=== PATIENT | male | born 1945 | race Caucasian/White ===

== ENCOUNTER → 2024-04-28 12:48 | Outpatient (REF) | payer MEDICARE, BC, SELFPAY | LOC: RCS 12:48 | PROVIDERS: ATTENDING PHYSICIAN Internal Medicine Cardiovascular Disease; FAMILY PHYSICIAN Internal Medicine | DX: I48.0 Paroxysmal atrial fibrillation (principal); Z95.5 Presence of coronary angioplasty implant and graft; R00.2 Palpitations | CPT/HCPCS: 93306 ==

== ENCOUNTER → 2024-05-03 12:14 | Outpatient (REF) | payer MEDICARE, BC, SELFPAY | LOC: WOUND 12:14 | PROVIDERS: ATTENDING PHYSICIAN Surgery; FAMILY PHYSICIAN Internal Medicine | DX: L97.214 Non-pressure chronic ulcer of right calf with necrosis of bone (principal); M86.60 Other chronic osteomyelitis, unspecified site; I48.92 Unspecified atrial flutter; I48.0 Paroxysmal atrial fibrillation; R73.09 Other abnormal glucose; Z95.5 Presence of coronary angioplasty implant and graft | CPT/HCPCS: 99204 ==

== ENCOUNTER → 2024-05-17 11:06 | Outpatient (REF) | payer MEDICARE, BC, SELFPAY | LOC: WOUND 11:06 | PROVIDERS: ATTENDING PHYSICIAN Surgery; FAMILY PHYSICIAN Internal Medicine | DX: L97.214 Non-pressure chronic ulcer of right calf with necrosis of bone (principal); M86.60 Other chronic osteomyelitis, unspecified site; I48.92 Unspecified atrial flutter; I48.0 Paroxysmal atrial fibrillation; R73.09 Other abnormal glucose; Z95.5 Presence of coronary angioplasty implant and graft | CPT/HCPCS: 99213 ==

== ENCOUNTER → 2024-06-01 11:15 | Outpatient (REF) | payer MEDICARE, BC, SELFPAY | LOC: WOUND 11:15 | PROVIDERS: ATTENDING PHYSICIAN Surgery; FAMILY PHYSICIAN Internal Medicine | DX: L97.214 Non-pressure chronic ulcer of right calf with necrosis of bone (principal); M86.60 Other chronic osteomyelitis, unspecified site; I48.92 Unspecified atrial flutter; I48.0 Paroxysmal atrial fibrillation; R73.09 Other abnormal glucose; Z95.5 Presence of coronary angioplasty implant and graft | CPT/HCPCS: 99214 ==

== ENCOUNTER → 2024-07-06 13:45 | Outpatient (REF) | payer MEDICARE, BC, SELFPAY | LOC: WOUND 13:45 | PROVIDERS: ATTENDING PHYSICIAN Surgery; FAMILY PHYSICIAN Internal Medicine | DX: L97.214 Non-pressure chronic ulcer of right calf with necrosis of bone (principal); M86.60 Other chronic osteomyelitis, unspecified site; I48.92 Unspecified atrial flutter; I48.0 Paroxysmal atrial fibrillation; R73.09 Other abnormal glucose; Z95.5 Presence of coronary angioplasty implant and graft | CPT/HCPCS: 99214 ==

== ENCOUNTER → 2024-08-19 13:11 | Outpatient (REF) | payer MEDICARE, BC, SELFPAY | LOC: WOUND 13:11 | PROVIDERS: ATTENDING PHYSICIAN Surgery | DX: L97.214 Non-pressure chronic ulcer of right calf with necrosis of bone (principal); M86.60 Other chronic osteomyelitis, unspecified site | CPT/HCPCS: 99213 ==

== ENCOUNTER 2024-12-16 09:28 | Emergency (ER) | payer MEDICARE, BC, SELFPAY ==
[2024-12-16] VITALS (12 sets, daily range): BP systolic 66–136; BP diastolic 43–77
[2024-12-16] MEDS: LIDOCAINE 4% PATCH 1 PATCH TOPICAL (10:02)
--- NOTE | 2024-12-16 10:04 | ED.MUSCINJ ---
HPI-Injury
General
Chief Complaint: Extremity Pain (non-traumatic)
Time Seen by Provider: 12/16/24 09:44
Nursing documentation reviewed up to this point in time: agreed with
History of Present Illness-Injury
Initial Injury comments:
79-year-old male presents to the ER for evaluation of severe pain in his right shoulder. Patient states that he has had some minor discomfort in his shoulder in the past. He knew he was going to be undergoing a procedure on his lower extremities
which would require him to use a walker and states that he participated in some sort of strengthening program prior to the surgery. Surgery was completed at [facility] last week-he was discharged home on Friday. He has been using a walker to get
around his house. Procedure related to ongoing infection right lower extremity which included a graft from his left thigh to his right lower leg. He is currently on vancomycin. He denies any injury or trauma directly involving his right shoulder.
He denies any fevers. He had been using Tylenol for his pain and states that his legs have been feeling good. He did have a prescription of oxycodone to use at home and states that he took 2 tablets of this throughout the night without any
improvement in his pain in his shoulder prompting him to call 911 this morning for evaluation. is present at bedside who corroborates his story as she had been administering his medications through the night.
Review of Systems
Review of Systems
Allergies reviewed?: Yes
Phy Exam
Physical Exam
Physical Exam:
Patient is awake, alert, appears in no acute distress, head is NCAT, PERRL, EOMI mucous membranes moist, conjunctiva pink, heart regular rate and rhythm without murmurs or ectopy, lungs are clear to auscultation without wheezes rales or rhonchi, no
JVD, abdomen is soft and nontender on palpation, extremities without edema, right shoulder with palpable joint effusion and exquisite pain on palpation, limited active range of motion of the shoulder in all directions due to severity of discomfort,
intact sensation to light touch and active range of motion present distal to the elbow, no edema noted to the distal right upper extremity, brisk up refill present to the digits of the right hand, 2+ radial pulses present symmetric, bilateral lower
extremity examination reveals healing donor site left anterior thigh which is clean dry and intact, ANAMARIA drain is present with serosanguinous drainage, recipient site present right anterior lower leg appears clean dry and intact, no erythema, ANAMARIA
drains are present with scant serosanguineous drainage, 2+ DP pulses present symmetric bilateral feet, GCS is 15
Injury Course
Orders/Labs/Results
Orders:
Orders
12/16/24 09:45
Lidocaine [Lidocaine 4% Patch] 1 patch TOPICAL ONCE ONE
Apply Lidocaine patch(s) to:: right shoulder
CR Shoulder - Right Min 2 View Urgent
Comment:
Reason For Exam: pain
12/16/24 09:50
Body Fluid Cell Count Urgent
What is the Body Fluid: joint
Comment: with DIFF
Body Fluid Crystals Urgent
What is the Body Fluid: joint
Body Fluid Glucose Urgent
Fluid Source: Other
Other Source: R shoulder
Fluid Culture with Gram Stain Urgent
KURT Source: Joint Fluid
Specimen Description:
Gram Stain Stat
KURT Source: Joint
Specimen Description:
12/16/24 09:59
Basic Metabolic Panel Urgent
CRP [C-Reactive Protein] Urgent
Complete Blood Count/With Diff Urgent
Lyme Progressive Urgent
Sed Rate [Erythrocyte Sed Rate] Urgent
12/16/24 10:03
Consult Interventional Radiology [IRAD CONSULT] Urgent
Consulting Provider: Cash Wang
Was physician already notified: Yes
Procedure being ordered, including laterality if applicable: R shoulder arthrocentesis
Acknowledgement that appropriate orders are entered: Yes
12/16/24 13:37
OID Social Work/Psychosocial Automatic Maintainer Consult Routine
PT Consult [Pt Eval And Treat] Urgent
Treatment: assess gait/try platform walker (having shoulder pain from trad. walker)
Activity Level: Ambulate
12/16/24 13:47
Treatment- Walker ONCE
Comment: platform walker
Abnormal Lab Results
12/16/24
09:59
WBC 13.6 H 10^3/uL
(4.8-10.8)
RBC 3.97 L 10^6/uL
(4.70-6.10)
Hgb 11.4 L g/dL
(13.0-18.0)
Hct 34.6 L %
(39.0-52.0)
MCHC 32.9 L g/dL
(33.0-37.0)
Abs Immat Gran (auto) 0.1 H 10^3/uL
(0-0.05)
Absolute Neuts (auto) 11.3 H 10^3/uL
(1.4-6.5)
Absolute Lymphs (auto) 0.7 L 10^3/uL
(1.2-3.4)
Absolute Monos (auto) 1.4 H 10^3/uL
(0.1-0.6)
Immature Gran % 0.6 H %
(0-0.5)
Neutrophils % 83.3 H %
(42.2-75.2)
Lymphocytes % 5.4 L %
(20.5-51.1)
Monocytes % 10.2 H %
(1.7-9.3)
ESR 58 H mm/hour
(0-20)
Sodium 133 L mmol/L
(135-145)
BUN 25 H mg/dl
(9-20)
Glucose 171 H mg/dl
(70-99)
C-Reactive Protein 44.20 H mg/L
(0.0-10.00)
12/16/24 09:59
12/16/24 09:59
Mild elevation in white blood count and CRP. Electrolytes within normal limits.
MDM/Problems Addressed
Differential Diagnosis Includes:
Differential diagnosis to consider but not limited to septic arthritis, sprain, strain, fracture along with other etiologies considered
Chronic conditions affecting care:
Ongoing use of antibiotics status post skin graft, A-fib
*Radiology
Radiology exam reviewed: preliminary read by ED provider (I independently viewed and interpreted x-rays of the right shoulder showing extensive DJD, no fracture no dislocation)
*Pulse Oximetry
SaO2: 96
Oxygen Mode of Delivery: Room air
Patient hypoxic: no
*Critical Care Note
Total Time (30-74mins, 75-104mins- exclusive of procedures): Not Applicable
Update Note
Update Note:
Screening labs are ordered including CRP and sed rate, however these will be confounding and not necessarily reassuring in light of recent procedure and concurrent use of antibiotics. I spoke with Dr. Wang from interventional radiology to help
coordinate arthrocentesis of the right shoulder to rule out septic effusion. Awaiting results. Patient given topical lidocaine patch for trial of pain relief. Patient and present at bedside agree with plan at current
1115: I updated pt and with nonspecific lab findings and xray with significant DJD. Awaiting arthrocentesis for further care plan. Pt feeling better after lidocaine patch applied.
1346: Pt should be going to IR shortly. PT and social work consults placed to help facilitate likely d/c home if aspiration is wnl. Full pt care transferred to Dr Whitman for dispo pending arthrocentesis.
ED Attending Note
-
Portions of this chart may have been created with voice recognition software.� Occasional wrong word or��sound alike� substitutions may have occurred due to the inherent limitations of voice recognition software.
Discharge Plan
Departure
Discharge Problem:
Shoulder arthralgia
Prescriptions:
No Action
aspirin [Aspir-Low] 81 MG tablet,delayed release (DR/EC)
81 mg PO DAILY
tamsulosin 0.4 MG capsule
0.4 mg PO QPM
pantoprazole 40 MG tablet,delayed release (DR/EC)
40 mg PO R Q48H
sertraline 25 MG tablet
25 mg PO BID
triamterene-hydrochlorothiazid 1 EACH tablet
1 ea PO DAILY
metoprolol succinate [Toprol XL] 25 MG tablet extended release 24 hr
25 mg PO QPM
glucosamines, HCl, sulf,acetyl 1 GM tablet
1 gm PO BID
Talconex
1 pwd topical PRN PRN (Reason: scalp)
Vitamin C Liposomal
1,000 mg PO DAILY
clopidogrel 75 MG tablet
75 mg PO DAILY Qty: 90 3RF
nitroglycerin 0.4 MG tablet, sublingual
0.4 mg sublingual [id number] PRN (Reason: chest pain) Qty: 25 2RF
atorvastatin 40 MG tablet
40 mg PO DAILY Qty: 90 3RF
Referrals:
Deion Martinez MD [Active, Orthopedics] - Next open appointment
Cash Smith MD [Family Provider, Internal Medicine]
Interventions
Interventions:
*Risk Screen - Suicide Last Done: 12/16/24 09:44
*General Assessment Last Done: 12/16/24 09:44
*Neglect/Abuse Screening Last Done: 12/16/24 09:44
*ED COVID-19 Vaccine History Last Done: 12/16/24 09:44
*ED Influenza Vaccine History Last Done: 12/16/24 09:44
ED-Skin Assessment Last Done: 12/16/24 10:14
ED-Peripheral Vascular Assessment Last Done: 12/16/24 10:22
ED-Musculoskeletal Assessment Last Done: 12/16/24 10:21
Discharge Date and Time
Print Language: HUNGARIAN
[2024-12-16 10:07] LABS: Hematocrit 34.6 % (39.0-52.0); Hemoglobin 11.4 g/dL (13.0-18.0); Mean Corp Hgb Conc. 32.9 g/dL (33.0-37.0); Mean Corpuscular Volume 87.2 fL (80.0-94.0); Nucleated Red Blood Cells % 0 % (-); Platelet Count 370 10^3/uL (130-400); Red Cell Dist. Width 14.0 % (11.5-14.5)
[2024-12-16 10:25] LABS: Blood Urea Nitrogen 25 mg/dl (9-20); Calcium 9.7 mg/dl (8.4-10.2); Carbon Dioxide 22 mmol/L (22-30); Chloride 100 mmol/L (98-107); Estimated Creatinine Clearance 85 ml/min; Glucose 171 mg/dl (70-99); Potassium 4.6 mmol/L (3.5-5.1); Sodium 133 mmol/L (135-145); eGFR > 60.00
[2024-12-16 10:27] LABS: C-Reactive Protein 44.20 mg/L (0.0-10.00)
[2024-12-16 14:01] LABS: Lyme Antibody Screen, EIA Negative (Negative)
--- NOTE | 2024-12-16 15:20 | CM ---
Patient seen at bedside with also present. Patient was working with [facility] care and CM will send referral for GISELA. Patient seen by therapy and no further DME needed at this time. Patient lives with in home with PCP Dr. Smith and [facility] [place] Patient plan is for discharge home with providing transportation. CM will continue to follow for discharge planning needs.
Plan; home with [facility] to follow
[2024-12-16 18:50] LABS: Body Fluid Second Tech EYM
--- NOTE | 2024-12-16 19:35 | ED.GENMED ---
History of Present Illness
General
Chief Complaint: Extremity Pain (non-traumatic)
Time Seen by Provider: 12/16/24 09:44
Course
Orders/Labs/Results
Orders:
Orders
12/16/24 09:45
Lidocaine [Lidocaine 4% Patch] 1 patch TOPICAL ONCE ONE
Apply Lidocaine patch(s) to:: right shoulder
CR Shoulder - Right Min 2 View Urgent
Comment:
Reason For Exam: pain
12/16/24 09:59
Basic Metabolic Panel Urgent
CRP [C-Reactive Protein] Urgent
Complete Blood Count/With Diff Urgent
Lyme Progressive Urgent
Sed Rate [Erythrocyte Sed Rate] Urgent
12/16/24 10:03
Consult Interventional Radiology [IRAD CONSULT] Urgent
Consulting Provider: Cash Wang
Was physician already notified: Yes
Procedure being ordered, including laterality if applicable: R shoulder arthrocentesis
Acknowledgement that appropriate orders are entered: Yes
12/16/24 13:37
OID Social Work/Psychosocial Lace Weaver Consult Routine
PT Consult [Pt Eval And Treat] Urgent
Treatment: assess gait/try platform walker (having shoulder pain from trad. walker)
Activity Level: Ambulate
12/16/24 13:47
Treatment- Walker ONCE
Comment: platform walker
12/16/24 17:20
Body Fluid Cell Count Urgent
What is the Body Fluid: joint
Date Specimen was Collected: 12/16/24
Time Specimen was Collected: 17:25
Comment: with DIFF (RIGHT SHOULDER ASPIRATE)
Body Fluid Crystals Urgent
What is the Body Fluid: joint
Date Specimen was Collected: 12/16/24
Time Specimen was Collected: 17:25
Comment: right shoulder aspirate
Fluid Culture with Gram Stain Urgent
KURT Source: Joint Fluid
Specimen Description:
Date Specimen was Collected: 12/16/24
Time Specimen was Collected: 17:25
Abnormal Lab Results
12/16/24
09:59
WBC 13.6 H 10^3/uL
(4.8-10.8)
RBC 3.97 L 10^6/uL
(4.70-6.10)
Hgb 11.4 L g/dL
(13.0-18.0)
Hct 34.6 L %
(39.0-52.0)
MCHC 32.9 L g/dL
(33.0-37.0)
Abs Immat Gran (auto) 0.1 H 10^3/uL
(0-0.05)
Absolute Neuts (auto) 11.3 H 10^3/uL
(1.4-6.5)
Absolute Lymphs (auto) 0.7 L 10^3/uL
(1.2-3.4)
Absolute Monos (auto) 1.4 H 10^3/uL
(0.1-0.6)
Immature Gran % 0.6 H %
(0-0.5)
Neutrophils % 83.3 H %
(42.2-75.2)
Lymphocytes % 5.4 L %
(20.5-51.1)
Monocytes % 10.2 H %
(1.7-9.3)
ESR 58 H mm/hour
(0-20)
Sodium 133 L mmol/L
(135-145)
BUN 25 H mg/dl
(9-20)
Glucose 171 H mg/dl
(70-99)
C-Reactive Protein 44.20 H mg/L
(0.0-10.00)
12/16/24 09:59
12/16/24 09:59
Vital Signs
Initial and Last Documented VS:
Initial Vital Signs
Pulse Resp BP Pulse Ox
63 18 110/65 95
12/16/24 09:33 12/16/24 09:33 12/16/24 09:33 12/16/24 09:33
Last Documented Vital Signs
Temp Pulse Resp BP Pulse Ox
98.6 F 66 19 124/61 97
12/16/24 16:30 12/16/24 16:30 12/16/24 16:30 12/16/24 19:00 12/16/24 16:30
*Pulse Oximetry
SaO2: 97
Oxygen Mode of Delivery: Room air
Update Note
Update Note:
Patient seen by case management and PT here. PT evaluation and she is satisfied with patient's ability to use walker and does not recommend a platform walker. Patient and are also very comfortable, with walker. Patient's pain is fully
resolved with lidocaine patch. Arthrocentesis results reviewed by me and also discussed with Dr. Martinez. Although white blood cell count is greater than 50,000, overall picture extremely suggestive of gout given crystals seen. We will continue
vancomycin add colchicine and follow patient clinically as an outpatient closely. This was discussed with patient and and they understand the importance of this close follow-up and reasons to return to the emergency department.
ED Attending Note
-
Portions of this chart may have been created with voice recognition software.� Occasional wrong word or��sound alike� substitutions may have occurred due to the inherent limitations of voice recognition software.
Discharge Plan
Departure
Patient Disposition: Home (Routine Discharge)
Date of Disposition: 12/16/24
Time of Disposition: 19:35
Patient with high blood pressure during this ER visit?: Yes
Discharge Problem:
Shoulder arthralgia
Instructions: Gout, Shoulder pain, BLOOD PRESSURE
Prescriptions:
New
lidocaine 5 % adhesive patch,medicated
1 patch topical DAILY PRN (Reason: pain) Qty: 15 0RF
Rx Instructions:
remove after 12 hours, can apply new patch 12 hours later
colchicine 0.6 mg capsule
0.6 mg PO BID Qty: 60 0RF
No Action
aspirin [Aspir-Low] 81 MG tablet,delayed release (DR/EC)
81 mg PO DAILY
tamsulosin 0.4 MG capsule
0.4 mg PO QPM
pantoprazole 40 MG tablet,delayed release (DR/EC)
40 mg PO R Q48H
sertraline 25 MG tablet
25 mg PO BID
triamterene-hydrochlorothiazid 1 EACH tablet
1 ea PO DAILY
metoprolol succinate [Toprol XL] 25 MG tablet extended release 24 hr
25 mg PO QPM
glucosamines, HCl, sulf,acetyl 1 GM tablet
1 gm PO BID
Talconex
1 pwd topical PRN PRN (Reason: scalp)
Vitamin C Liposomal
1,000 mg PO DAILY
clopidogrel 75 MG tablet
75 mg PO DAILY Qty: 90 3RF
nitroglycerin 0.4 MG tablet, sublingual
0.4 mg sublingual [id number] PRN (Reason: chest pain) Qty: 25 2RF
atorvastatin 40 MG tablet
40 mg PO DAILY Qty: 90 3RF
Referrals:
Deion Martinez MD [Active, Orthopedics] - Next open appointment
Cash Smith MD [Family Provider, Internal Medicine]
Activity Restrictions/Additional Instructions:
IF YOU DEVELOP INCREASING/NEW/PERSISTENT PAIN, ANY FEVER, REDNESS, WARMTH, INCREASING/NEW SWELLING OF YOUR SHOULDER, CHILLS, GET WORSE, DO NOT GET BETTER, OR OTHER WORRISOME SIGNS, GO TO THE ER IMMEDIATELY!
Interventions
Interventions:
*Risk Screen - Suicide Last Done: 12/16/24 09:44
*General Assessment Last Done: 12/16/24 09:44
*Neglect/Abuse Screening Last Done: 12/16/24 09:44
*ED COVID-19 Vaccine History Last Done: 12/16/24 09:44
*ED Influenza Vaccine History Last Done: 12/16/24 09:44
ED-Skin Assessment Last Done: 12/16/24 10:14
ED-Peripheral Vascular Assessment Last Done: 12/16/24 10:22
ED-Musculoskeletal Assessment Last Done: 12/16/24 10:21
Discharge Date and Time
Print Language: SOUTH AFRICAN
== END 2024-12-16 19:55 | disposition home or self-care (01) ==
LOC: EMR 09:28
PROVIDERS: CONSULT PHYSICIAN Radiology Vascular & Interventional Radiology; EMERGENCY PHYSICIAN Emergency Medicine; FAMILY PHYSICIAN Internal Medicine
DX: M25.511 Pain in right shoulder (principal); I48.91 Unspecified atrial fibrillation; Z79.2 Long term (current) use of antibiotics
CPT/HCPCS: 99284; 20610; 73030; 77002; 80048; 85025; 85652; 86140; 86618; 87015; 87070; 87205; 89051; 89060

== ENCOUNTER 2025-02-19 22:55 | Emergency (ER) | payer MEDICARE, BC, SELFPAY ==
[2025-02-19 23:06] VITALS: BP 130/96
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
== END 2025-02-20 05:06 | disposition home or self-care (01) ==
LOC: EMR 22:55
PROVIDERS: EMERGENCY PHYSICIAN Emergency Medicine; FAMILY PHYSICIAN Internal Medicine
DX: M84.461A Pathological fracture, right tibia, initial encounter for fracture (principal); I10 Essential (primary) hypertension; I25.10 Atherosclerotic heart disease of native coronary artery without angina pectoris; I48.0 Paroxysmal atrial fibrillation; Z95.5 Presence of coronary angioplasty implant and graft; Z79.02 Long term (current) use of antithrombotics/antiplatelets; Z79.82 Long term (current) use of aspirin
CPT/HCPCS: 29515; 99283; 73590